=== PATIENT | female | born 1950 | race Caucasian/White ===

== ENCOUNTER 2016-08-10 08:32 | Emergency (ER) | payer OTHER ==
[~2016-08-10] VITALS: Ht 160 cm; Wt 93.0 kg
[2016-08-10] MEDS ORDERED: CHOLESTEROL MED (08:52)
[2016-08-10] MEDS ORDERED: LEVOTHYROXINE 0.1 MG PO (08:52)
[2016-08-10 09:31] LABS: URINE BILIRUBIN NEGATIVE (Negative); URINE BLOOD NEGATIVE (Negative); URINE COLOR YELLOW; URINE GLUCOSE-RANDOM* NEGATIVE (Negative); URINE KETONES NEGATIVE (Negative); URINE LEUKOCYTES-REFLEX 1+ (Negative); URINE PROTEIN (DIPSTICK) NEGATIVE (Negative); URINE UROBILINOGEN 0.2 E.U./dl (0.2-1.0)
[2016-08-10 09:38] LABS: ABSOLUTE NEUTROPHILS 4.9 thou/uL (1.4-8.2); BASOPHILS 0.6 % (0.0-2.0); EOSINOPHILS 0.7 % (0.0-3.0); HEMATOCRIT 40.8 % (37.0-47.0); HEMOGLOBIN 13.7 gm/dL (12.0-15.0); LYMPHOCYTES 19.2 % (24.0-44.0); MANUAL DIFF NO; MCH 30.4 pg (26.0-34.0); MCHC 33.5 g/dL (28.0-37.0); MCV 90.7 fL (80.0-100.0); MONOCYTES 3.6 % (1.0-8.0); PLATELET COUNT 234 thou/uL (150-400); POLYS 75.9 % (36.0-66.0); RDW 13.6 % (10.5-14.5); WBC 6.5 thou/uL (4.0-11.0)
[2016-08-10 09:46] LABS: CALCIUM 9.5 mg/dL (8.5-10.1); CREATININE 0.8 mg/dL (0.6-1.0)
[2016-08-10 09:50] LABS: ALBUMIN 3.9 g/dL (3.4-5.0); TOTAL BILIRUBIN 0.9 mg/dL (<0.1-1.0); TOTAL PROTEIN 7.7 g/dL (6.4-8.2)
[2016-08-10 10:49] LABS: SQUAMOUS 4-10 Moderate /LPF (0-3)
[2016-08-10 10:51] LABS: CASTS None Seen /LPF (None Seen); CRYSTALS None Seen /LPF (None Seen); URINE WBC-REFLEX 0-5 Rare /HPF (0-5)
[2016-08-10 10:52] LABS: URINE RBC None Seen /HPF (0-2)
[2016-08-10] MEDS ORDERED: BUTALB-APAP-CA1 EACH PO (10:55)
[2016-08-10 11:19] VITALS: BP 131/67
== END 2016-08-10 11:20 | disposition home or self-care (01) ==
LOC: ER 08:32
PROVIDERS: Emergency Medicine
DX: R51 Headache (principal); R30.0 Dysuria; J02.9 Acute pharyngitis, unspecified; Z88.0 Allergy status to penicillin; Z88.2 Allergy status to sulfonamides; Z87.891 Personal history of nicotine dependence